=== PATIENT | female | born 1965 | race Caucasian/White ===

== ENCOUNTER 2019-11-11 15:00 | Outpatient (CLI) | payer OTHER, SELFPAY ==
--- NOTE | ~2019-11-11 | MM_ITS ---
EXAMINATION: MM screening [facility] BI w devin HISTORY: Screening mammogram TECHNIQUE: Craniocaudal and mediolateral oblique 3-D tomosynthesis images were obtained and synthetic 2-D images were generated. CAD analysis was submitted and interpreted. COMPARISON: 05/09/2018, 01/20/2017, 10/26/2015 BREAST PARENCHYMAL COMPOSITION: There are scattered areas of fibroglandular density. FINDINGS: Scattered benign-appearing calcifications are present. There is no evidence of suspicious m ass, calcification, or architectural distortion to suggest malignancy in either breast. There has bee n no suspicious interval change. IMPRESSION: 1. No mammographic evidence of malignancy. 2. Recommend routine screening mammography in one year. BI-RADS Category 2: Benign finding(s). Reviewed, dictated and finalized at location A.
== END 2019-11-11 15:01 | disposition home or self-care (01) ==
LOC: ANHIMG 15:03
PROVIDERS: PCP Physician Assistant; Visit Provider Obstetrics & Gynecology
DX: Z12.31 Encounter for screening mammogram for malignant neoplasm of breast (principal)
CPT/HCPCS: 77063; 77067

== ENCOUNTER 2020-11-16 08:55 | Outpatient (CLI) | payer OTHER, SELFPAY ==
--- NOTE | ~2020-11-16 | MM_ITS ---
EXAMINATION: MM screening [facility] BI w devin HISTORY: Screening TECHNIQUE: Craniocaudal and mediolateral oblique 3-D tomosynthesis images were obtained and synthetic 2-D images were generated. CAD analysis was submitted and interpreted. COMPARISON: Comparison to multiple prior studies sequentially, with oldest reviewed study dated 11/19. BREAST PARENCHYMAL COMPOSITION: There are scattered areas of fibroglandular density. FINDINGS: There is a mass in the mid outer aspect of the right breast with central lucency. The left breast is stable without evidence for malignancy. IMPRESSION: 1. Mass mid outer aspect of the right breast, middle third. 2. Additional mammographic views and possible breast ultrasound are recommended. BI-RADS Category 0: Incomplete: Needs additional imaging evaluation. Reviewed, dictated and finalized at location A. IMPRESSION: 1. Mass mid outer aspect of the right breast, middle third. 2. Additional mammographic views and possible breast ultrasound are recommended . BI-RADS Category 0: Incomplete: Needs additional imaging evaluation.
== END 2020-11-16 08:56 | disposition home or self-care (01) ==
LOC: ANHIMG 08:58
PROVIDERS: PCP Physician Assistant; Visit Provider Obstetrics & Gynecology
DX: Z12.31 Encounter for screening mammogram for malignant neoplasm of breast (principal); R92.8 Other abnormal and inconclusive findings on diagnostic imaging of breast
CPT/HCPCS: 77063; 77067

== ENCOUNTER → 2020-12-28 14:30 | Outpatient (CLI) | payer OTHER, SELFPAY ==
--- NOTE | ~2020-12-28 | MMUS_ITS ---
EXAMINATION: MM diagnostic [facility] RT w devin, US breast RT limited HISTORY: Follow-up right breast mass TECHNIQUE: Additional 3-D tomosynthesis images of the right breast were performed and synthetic 2-D i mages were generated. CAD analysis was submitted and interpreted. High resolution Limited right breas t ultrasound was performed. COMPARISON: Comparison to multiple prior studies sequentially, with oldest reviewed study dated 11/19. BREAST PARENCHYMAL COMPOSITION: Breast composed of scattered areas of fibroglandular density. FINDINGS: MAMMOGRAPHIC FINDINGS: There is a mass in the mid outer aspect of the right breast with central lucency, most likely benign intramammary lymph node. ULTRASOUND: Limited right breast ultrasound: At 8:00, 6 cm from the nipple, there is a benign 8 mm lymph node cor responding to the mammographic abnormality. IMPRESSION: 1. No evidence for malignancy in the right breast. Benign findings. 2. Routine yearly screening mammogram and regular clinical breast examination are recommended. BI-RADS Category 2: Benign finding(s). Reviewed, dictated and finalized at location A. IMPRESSION: 1. No evidence for malignancy in the right breast. Benign findings. 2. Routine yearly screening mammogram and regular clinical breast examination a re recommended. BI-RADS Category 2: Benign finding(s).
== END ==
PROVIDERS: PCP Physician Assistant; Visit Provider Obstetrics & Gynecology
DX: R92.8 Other abnormal and inconclusive findings on diagnostic imaging of breast (principal)
CPT/HCPCS: 76642; 77061; 77065; G0279

== ENCOUNTER 2021-03-11 12:47 | Outpatient (CLI) | payer OTHER, SELFPAY ==
--- NOTE | ~2021-03-11 | DEXA_ITS ---
Bone Density Report Name: Zari Finley Age: 55 Sex: Female Ethnicity: White Date of : 1965 Indication: postmenopausal; height loss; Referring Provider: Edilia, Keyla Study: Bone densitometry was performed. Exam Date: March 11, 2021 Accession number: [id number] Bone Density: Region BMD T-score Z-score Classification AP Spine (L1-L4) 0.825 -2.0 -1.0 Osteopenia Femoral Neck (Left) 0.718 -1.2 -0.2 Osteopenia Total Hip (Left) 0.918 -0.2 0.5 Normal Total Hip Bilateral Avg 0.906 -0.3 0.4 Normal Femoral Neck (Right) 0.732 -1.1 0.0 Osteopenia Total Hip (Right) 0.893 -0.4 0.3 Normal World Health Organization criteria for BMD impression classify patients as: Normal (T-score at or above -1.0), Osteopenia (T-score between -1.0 and -2.5), or Osteoporosis (T-score at or below -2.5). 10-year Fracture Risk(1): Major Osteoporotic Fracture 6.0% Hip Fracture 0.3% Reported Risk Factors: [place] (), Neck BMD=0.718, BMI=25.5 (1) FRAX(R) Version 3.08. Fracture probability calculated for an untreated patient. Fracture probability may be lower if the patient has received treatment. Clinical Information Provided by Patient: Patient maximum height was 69 Menopause Age: 53 Drinks caffeinated beverages Onset of menses at age 16 Number of children 2 Impression: The patient has low bone mass, based on the Total Spine T-score. The patient has an estimated ten-year risk of hip fracture of 0.3% and an estimated ten-year risk of major fracture of 6%, based on the WHO FRAX algorithm. Discussion: BONE DENSITY IS LOW AT ONE OR MORE SKELETAL SITES. This patient's lowest T-score is low at one or more skeletal sites. It meets the World Health Organization's (WHO) criteria for ?low bone mass? (T-score between -1.0 and -2.5). The patient's 10-year risk of fracture as calculated by FRAX is less than the threshold where pharmacological therapy is recommended by the National Osteoporosis Foundation (NOF). However, all treatment decisions require clinical judgment and consideration of individual patient factors, including patient preferences, comorbidities, previous drug use, risk factors not captured in the FRAX model (e.g., frailty, falls, vitamin D deficiency, increased bone turnover, interval significant decline in bone density) and possible under or overestimation of fracture risk by FRAX. The patient should follow a healthful lifestyle (good nutrition with adequate calcium and vitamin D, and appropriate weight-bearing exercise). Follow-Up: Consider repeating this study in 2 to 3 years to reassess this patient's status, or sooner if there is some new clinical indication. Reported by: VAMSI on 03/11/2021 1:20:00 PM. Reviewed, dictated and finalized at location A.
== END 2021-03-11 12:48 | disposition home or self-care (01) ==
PROVIDERS: PCP Physician Assistant; Visit Provider Physician Assistant
DX: Z78.0 Asymptomatic menopausal state (principal); M85.89 Other specified disorders of bone density and structure, multiple sites
CPT/HCPCS: 77080

== ENCOUNTER 2022-01-26 16:48 | Outpatient (CLI) | payer OTHER, SELFPAY ==
--- NOTE | ~2022-01-26 | MM_ITS ---
EXAMINATION: MM screening [facility] BI w devin HISTORY: Screening mammogram TECHNIQUE: Craniocaudal and mediolateral oblique 3-D tomosynthesis images were obtained and synthetic 2-D images were generated. CAD analysis was submitted and interpreted. COMPARISON: 12/28/2020 diagnostic right mammogram and limited right breast ultrasound 11/16/2020, 11/11/2019, 05/09/2018 bilateral screening mammogram examinations BREAST PARENCHYMAL COMPOSITION: There are scattered areas of fibroglandular density. FINDINGS: Stable circumscribed benign-appearing lymph node in the posterior outer mid right breast. S cattered bilateral benign calcifications. There is no evidence of suspicious mass, calcification, or architectural distortion to suggest malignancy in either breast. There has been no suspicious interva l change. IMPRESSION: 1. No mammographic evidence of malignancy. 2. Recommend routine screening mammography in one year. BI-RADS Category 2: Benign finding(s). Reviewed, dictated and finalized at location A.
== END 2022-01-26 16:49 | disposition home or self-care (01) ==
PROVIDERS: PCP Physician Assistant; Visit Provider Obstetrics & Gynecology
DX: Z12.31 Encounter for screening mammogram for malignant neoplasm of breast (principal)
CPT/HCPCS: 77063; 77067

== ENCOUNTER 2022-02-14 00:48 | Day surgery (SDC) | payer OTHER, SELFPAY ==
[2022-02-04 16:23] VITALS: BMI 25.1
--- NOTE | 2022-02-04 16:30 | PC.NURSE ---
Report to the Outpatient Waiting Room, entrance under the green pavilion located off [facility], at time ___08:00AM____ on date __[id number] . OR Time: ____10:00AM____. Time changes happen often and if your time is changed the preop area will call you the afternoon before. - You and your visitor will be asked to self-screen and do not enter if you have any COVID symptoms. - We encourage only one visitor and NO visitors under age 16 are allowed at this time. Your visitor will receive communication by the phone number that is given day of service. - The patient visitor is requested to social distance or may leave the building when not with patient due to restrictions. - A mask is required within the hospital. Patients may have clear liquids (water, carbonated beverages, clear teas, apple juice) until 3 hours prior to surgery with a maximum of 20 ounces. - No food from midnight until time of surgery - NOTHING TO DRINK AFTER 07:00AM Take the following medications with a SIP of water the morning of surgery: ____SYNTHROID Medications to discontinue per physician N/A Date to take last dose N/A Please no make-up, nail indian, hairspray, perfume, deodorant, or body powder the day of surgery. No jewelry (including any body piercings) or valuables the day of surgery, leave them at home. Please take a shower or bath the night before, or the morning of, surgery with an antibacterial soap. Wear comfortable, loose fitting clothing. - Jewelry must be removed prior to entering the operating room. Rings and piercings that are not removed may be cut off. - The hospital will not accept responsibility for valuables. - Please leave all valuables, including medications, at home the day of surgery. If you are going home after surgery, a licensed special events driver must drive you home. - NO public transportation without another adult. - We recommend that an adult stay with you for 24 hours following discharge. - We also recommend that you do not drive, make important decision, drink alcoholic beverages, or take any drugs that were not prescribed by your health care provider for at least 24 hours after your discharge time. Follow any additional instructions given to you from your surgeon. If you or anyone in your household have experienced Covid symptoms in the past week, please notify your surgeon or the nurse liaison at the phone number below for possible testing. Telephone instructions given to __PATIENT___and asked if any additional questions and then verbalized understanding. Patient advised to call surgeon office or pre surgery nurse liaison [phone] if any additional questions.
--- NOTE | 2022-02-13 19:16 | P.HP_ITS ---
H&P: HPI History of Present Illness Date/Time: 02/13/22 19:16 Chief Complaint: PMB Narrative: Zari is a 56yo postmenopausal P2002, who presented to clinic for WWE; pap normal 2019. She reported noticing discharge that looked like ovulation; then had spotting x 2 days (very light pink). She has not been sexually active. She had a [employer] US showing slightly thickened endometrium. Review of Systems Review of Systems: All systems reviewed & are unremarkable except as noted in HPI and below PMFSH Past Medical History Medical History High cholesterol HPV (human papilloma virus) infection Hypothyroid Mass of right breast on mammogram Meningioma Normal colonoscopy 1997 Screening mammogram, encounter for Vaginal delivery x 2 Surgical History Surgical History History of gynecological procedure (10/14/14) vulvar bx- lichen sclerosus History of tonsillectomy [place] teeth removed Family History Family History Father High cholesterol Acute myocardial infarction Grandparent Carcinoma of colon Social History Social History Smoking status: Never smoker Second hand tobacco smoke exposure: Yes () Alcohol intake: current Drinks per week: 1 Alcohol use details: OCCASIONAL Substance use: never Substance use type: does not use Additional living arrangements comments: Additional occupation/education comments: teacher Gender identity (if verbalized by the patient): Female Sexual Orientation (if Verbalized by the Patient): Straight or Heterosexual Spiritual care concerns: No Meds Home Medications and Allergies Home Medications Medication Instructions Recorded Confirmed Type levothyroxine 50 mcg tablet 50 mcg PO DAILY 10/22/19 02/04/22 History (Synthroid) clobetasol 0.05 % topical cream 1 applic topical .1-2x/week #60 11/17/21 02/04/22 Rx grams nystatin 100,000 unit/gram topical 1 applic topical BID PRN 11/17/21 02/04/22 Rx cream irritation #30 grams Allergies Allergy/AdvReac Type Severity Reaction Status Date / Time No Known Allergies Allergy Verified 02/04/22 16:21 Exam Const: General: cooperative, healthy appearing, comfortable and no acute distress Resp: Effort & Inspection: normal respiratory effort Cardio: Rate: regular rate GI: Inspection: normal to inspection GI Palp: No abdominal tenderness and Yes Soft to palpation : Other: deferred to OR Skin: General skin exam: normal color Neuro: General: patient oriented x3 Extrem: General: normal to inspection Psych: Appearance: grossly normal Affect: normal affect Attitude: cooperative Assessment and Plan Assessment and plan (1) Postmenopausal bleeding: Code(s): N95.0 - Postmenopausal bleeding Status: Acute Plan - Proceed with hysteroscopy, D&C - Risks and benefits explained in detail
--- NOTE | 2022-02-14 07:00 | WPDHPUPDATE1 ---
History and Physical Update Update Date/Time: 02/14/22 07:00 History and Physical has been reviewed, including an updated exam of the patient. There are NO changes in the patient's condition. Risks, benefits, and alternatives have been discussed and questions answered. Patient agrees to proceed with procedure.
[2022-02-14 08:09] VITALS: BP 113/50; PULSE 62; RESP 16; TEMP 36.5; O2SAT 99
[2022-02-14] MEDS: ACETAMINOPHEN 500 MG TABLET 1000 MG PO (08:23)
--- NOTE | 2022-02-14 09:00 | WPDANESEPPF ---
Anes - Initial Pre Proc Eval Procedure: Operation Date: 02/14/22 10:00 Proposed Procedures p Hysteroscopy, Dilation and Curettage - Doreen Islas MD Date/Time: 02/14/22 09:00 Surgeon: Doreen Islas MD Pre Op Diagnosis: endometrial hypertrophy Patient Data Age: 56 Gender: F Height: 1.73 m Weight: 77.8 kg Last Vital Signs Temp 36.5 C 02/14/22 08:09 Pulse 62 02/14/22 08:09 Resp 16 02/14/22 08:09 BP 113/50 L 02/14/22 08:09 Pulse Ox 99 02/14/22 08:09 O2 Del Method Room Air 02/14/22 08:09 Allergies Allergy/AdvReac Type Severity Reaction Status Date / Time No Known Allergies Allergy Verified 02/14/22 08:06 Home Medications Medication Instructions Recorded Confirmed Type levothyroxine 50 mcg tablet 50 mcg PO DAILY 10/22/19 02/14/22 History (Synthroid) clobetasol 0.05 % topical cream 1 applic topical .1-2x/week #60 11/17/21 02/14/22 Rx grams nystatin 100,000 unit/gram topical 1 applic topical BID PRN 11/17/21 02/14/22 Rx cream irritation #30 grams Patient hx anesthesia problems: none Family hx anesthesia problems: none Results Review: All pre-operative results and documents have been reviewed as part of the pre-operative evaluation. [facility] Past Medical History Medical History High cholesterol HPV (human papilloma virus) infection Hypothyroid Mass of right breast on mammogram Meningioma Normal colonoscopy 1997 Screening mammogram, encounter for Vaginal delivery x 2 Surgical History Surgical History History of gynecological procedure (10/14/14) vulvar bx- lichen sclerosus History of tonsillectomy [place] teeth removed Family History Family History Father High cholesterol Acute myocardial infarction Grandparent Carcinoma of colon Social History Social History Smoking status: Never smoker Second hand tobacco smoke exposure: Yes () Alcohol intake: current Drinks per week: 1 Alcohol use details: OCCASIONAL Substance use: never Substance use type: does not use Additional living arrangements comments: Additional occupation/education comments: teacher Gender identity (if verbalized by the patient): Female Sexual Orientation (if Verbalized by the Patient): Straight or Heterosexual Spiritual care concerns: No Anes - Eval Final PreProcedure Day of Procedure 02/14/22 09:00 Patient weight: normal Heart: regular rate and rhythm Lungs: clear to auscultation Airway: Mallampati scale class II Neurological: alert and oriented Last oral intake: >/= 8 hours ASA classification: II Emergent: no Anesthetic plan: proceed Anesthesia type and monitoring: general GIVS and standard monitoring Results Review: All pre-operative results and documents have been reviewed as part of the pre-operative evaluation. Informed Consent: The patient's anesthetic plan and its attendant risks and benefits were discussed with the patient/family/POA. Questions were solicited and answers provided to the satisfaction of the patient/family/POA.
--- NOTE | 2022-02-14 10:38 | W.PM.PROC2 ---
Procedure Note - Detailed Date of Procedure 02/14/22 Pre-op Diagnosis Postmenopausal bleeding Post-op Diagnosis Same Procedure Performed Hysteroscopy with D&C Surgeon Doreen Islas MD Anesthesia MAC Findings Uterus sounded to 8cm, bilateral tubal ostia were visualized, normal appearing endometrium. Good hemostasis at end of case. No fluid deficit at the end of the case. Description of Procedure Zari was taken to the operating room where she was placed under sedation without complications. She was then prepped and draped in the usual sterile fashion in the dorsal lithotomy position with her legs in low Sreedhar stirrups. A time-out was performed and no perioperative antibiotics were indicated. A bivalve speculum was placed within the vagina where the cervix was easily identified. The anterior lip of the cervix was grasped with a single-tooth tenaculum. The cervix was then serially dilated to allow for the hysteroscope. The hysteroscope was advanced into the uterine cavity with the above findings noted. A curettage was then performed until a good uterine cry was felt throughout the uterus. Good hemostasis was noted. All instruments were removed from the vagina. Sponge, lap, instrument, and needle counts were correct at the end of the procedure. Patient was awoken from anesthesia and taken to recovery with plans of same-day discharge home. Estimated Blood Loss 3 IV Fluids 900 Pathology Yes (endometrial curettings) Complications No immediate complications Condition Stable Disposition Same day [facility] Billing Surgery - Charge Forward: Surgery Billing
[2022-02-14 10:42] VITALS: BP 108/60; PULSE 46; RESP 12; O2SAT 98
[2022-02-14] MEDS: LACTATED RINGERS 1,000 ML 30 ML IV CONT (10:42)
[2022-02-14 11:10] VITALS: BP 97/51; PULSE 42; RESP 12; O2SAT 98
[2022-02-14 11:40] VITALS: BP 92/55; PULSE 42; RESP 12
== END 2022-02-14 11:56 | disposition home or self-care (01) ==
PROVIDERS: PCP Physician Assistant; Visit Provider Obstetrics & Gynecology
PROC: 0U5B8ZZ Destruction of Endometrium, Via Natural or Artificial Opening Endoscopic (ICD-10-PCS; CPT 58563; principal; 2022-02-14 10:00)
DX: N95.0 Postmenopausal bleeding (principal); N85.8 Other specified noninflammatory disorders of uterus; E03.9 Hypothyroidism, unspecified; E78.00 Pure hypercholesterolemia, unspecified
CPT/HCPCS: 58558; 88305; A9270; J2250; J2704; J3010; J7030; J7120

== ENCOUNTER 2022-11-04 12:05 | Outpatient (CLI) | payer OTHER, SELFPAY ==
--- NOTE | ~2022-11-04 | XR_ITS ---
EXAM: XR lumbar spine 2-3V DATE: 11/04/2022 12:45 HISTORY: PAIN RT LOWER LIMB;PAIN OF RIGHT KNEE JOINT WORSEN 4 DAYS . COMPARISON: None available. FINDINGS: Mild scoliosis. Decreased mineralization. 5 nonrib-bearing lumbar-type vertebral bodies. Pe dicles intact. Normal vertebral body alignment. Vertebral body heights preserved. Multilevel disc spa ce narrowing, mild at L3-4, moderate at L4-5, and severe at L5-S1. Moderate facet hypertrophy and scl erosis at L3-4 and L4-5. Severe facet hypertrophy and sclerosis at L5-S1. No fracture or dislocation. IMPRESSION: Multilevel lumbar degenerative disc disease, severe at L5-S1. Multilevel facet arthropath y. Reviewed, dictated and finalized at location K. IMPRESSION: Multilevel lumbar degenerative disc disease, severe at L5-S1. Multi level facet arthropathy.
--- NOTE | ~2022-11-04 | US_ITS ---
EXAMINATION: US venous doppler LE RT DATE: 11/04/2022 13:03 INDICATION: Right lower limb pain TECHNIQUE: Grayscale ultrasound images without and with compression and Doppler ultrasound images of the right lower extremity veins were obtained. COMPARISON: None. FINDINGS: The visualized portions of right common femoral vein, profunda (deep) femoral vein, femoral vein, pop liteal vein, peroneal trunk, posterior tibial veins, peroneal veins, gastrocnemius vein and greater s aphenous vein outflow are patent. IMPRESSION: 1. No deep venous thrombosis in the right lower limb. Reviewed, dictated and finalized at location B.
== END 2022-11-04 12:06 | disposition home or self-care (01) ==
PROVIDERS: PCP Physician Assistant; Visit Provider Physician Assistant
DX: M79.604 Pain in right leg (principal); M25.561 Pain in right knee; M51.36 Other intervertebral disc degeneration, lumbar region; M51.37 Other intervertebral disc degeneration, lumbosacral region
CPT/HCPCS: 72100; 73564; 93971

== ENCOUNTER 2023-04-05 16:24 | Outpatient (CLI) | payer OTHER, SELFPAY ==
--- NOTE | ~2023-04-05 | MM_ITS ---
EXAMINATION: MM screening [facility] BI w devin HISTORY: Screening mammogram TECHNIQUE: Craniocaudal and mediolateral oblique 3-D tomosynthesis images were obtained and synthetic 2-D images were generated. CAD analysis was submitted and interpreted. COMPARISON: 01/26/2022, 12/28/2020, 11/16/2020, 11/11/2019 BREAST PARENCHYMAL COMPOSITION: There are scattered areas of fibroglandular density. FINDINGS: Scattered benign-appearing calcifications are present. A stable intramammary lymph node is noted in the right breast. No suspicious mass, calcification, or architectural distortion are identif ied in either breast to suggest malignancy. There has been no suspicious interval change. IMPRESSION: 1. No mammographic evidence of malignancy. 2. Recommend routine screening mammography in one year. BI-RADS Category 2: Benign finding(s). Reviewed, dictated and finalized at location A. RMATICA ARCHITECT
== END 2023-04-05 16:25 | disposition home or self-care (01) ==
LOC: ANHIMG 16:30
PROVIDERS: PCP Physician Assistant; Visit Provider Obstetrics & Gynecology
DX: Z12.31 Encounter for screening mammogram for malignant neoplasm of breast (principal)
CPT/HCPCS: 77063; 77067

== ENCOUNTER 2024-04-08 15:33 | Outpatient (CLI) | payer OTHER, SELFPAY ==
--- NOTE | ~2024-04-08 | MM_ITS ---
EXAMINATION: MM screening [facility] BI w devin HISTORY: Screening TECHNIQUE: Craniocaudal and mediolateral oblique 3-D tomosynthesis images were obtained and synthetic 2-D images were generated. CAD analysis was submitted and interpreted. COMPARISON: Comparison to multiple prior studies sequentially, with oldest reviewed study dated 12/2018. BREAST PARENCHYMAL COMPOSITION: Not dense: There are scattered areas of fibroglandular density.. FINDINGS: There is no evidence of suspicious mass, calcification, or architectural distortion to sugg est malignancy in either breast. There has been no suspicious interval change. IMPRESSION: 1. No mammographic evidence of malignancy. 2. Recommend routine screening mammography in one year. BI-RADS Category 1: Negative Reviewed, dictated and finalized at location B. NG COACH
== END 2024-04-08 15:34 | disposition home or self-care (01) ==
LOC: ANHIMG 15:34
PROVIDERS: PCP Physician Assistant; Visit Provider Obstetrics & Gynecology
DX: Z12.31 Encounter for screening mammogram for malignant neoplasm of breast (principal)
CPT/HCPCS: 77063; 77067

== ENCOUNTER 2024-04-12 00:39 | Day surgery (SDC) | payer OTHER, SELFPAY ==
[2024-04-02 15:38] VITALS: BMI 25.1
[2024-04-12 07:28] VITALS: BP 108/62; PULSE 69; RESP 16; TEMP 35.6; O2SAT 100; BMI 25.8
--- NOTE | 2024-04-12 07:42 | P.PNAN_ITS ---
Anes - Initial Pre Proc Eval Procedure: Operation Date: 04/12/24 08:30 Proposed Procedures p Colonoscopy - Festus Portillo MD Date/Time: 04/12/24 07:42 Surgeon: Festus Portillo MD Pre Op Diagnosis: fecal abnormalities Patient Data Age: 58 Gender: F Height: 1.73 m Weight: 77.1 kg Last Vital Signs Temp 35.6 C L 04/12/24 07:28 Pulse 69 04/12/24 07:28 Resp 16 04/12/24 07:28 BP 108/62 04/12/24 07:28 Pulse Ox 100 04/12/24 07:28 O2 Del Method Room Air 04/12/24 07:28 Allergies Allergy/AdvReac Type Severity Reaction Status Date / Time No Known Allergies Allergy Verified 04/12/24 07:34 Home Medications ?Medication ?Instructions ?Recorded ?Confirmed ?Type levothyroxine 75 mcg tablet 75 mcg PO DAILY 11/29/23 04/12/24 History (Synthroid) nystatin 100,000 unit/gram topical 1 applic topical BID PRN 11/29/23 04/12/24 Rx cream irritation #30 grams clobetasol 0.05 % topical cream 1 applic topical BID PRN Rash 04/02/24 04/12/24 History docusate sodium 100 mg capsule 100 mg PO DAILY PRN Constipation 04/02/24 04/12/24 History Patient hx anesthesia problems: none Family hx anesthesia problems: none Results Review: All pre-operative results and documents have been reviewed as part of the pre- operative evaluation. [facility] Past Medical History Medical History Screening mammogram, encounter for Mass of right breast on mammogram Normal colonoscopy 1997 HPV (human papilloma virus) infection Vaginal delivery x 2 Meningioma Hypothyroid High cholesterol Surgical History Surgical History History of tonsillectomy History of gynecological procedure (10/14/14) vulvar bx- lichen sclerosus [place] teeth removed Family History Family History Father High cholesterol Acute myocardial infarction Lung cancer Grandparent Carcinoma of colon Other Breast cancer Social History Social History Smoking status: Never smoker Second hand tobacco smoke exposure: Yes () Alcohol intake: current Drinks per week: 1 Alcohol use details: OCCASIONAL Substance use: never Substance use type: does not use Lack of Transportation: No Lack of Food: Never True Current Housing: I Have Housing Concerned About Future Housing: No Difficulty Paying Gas/Electric Bills: No Difficulty Paying for Meds: No Currently Unemployed: No Education: Bachelor's Degree Difficulty w/ Childcare or Family Care: No Living arrangements: with family Additional living arrangements comments: Occupation/Education: occupation Additional occupation/education comments: teacher Gender identity (if verbalized by the patient): Female Sexual Orientation (if Verbalized by the Patient): Straight or Heterosexual Spiritual care concerns: No Anes - Eval Final PreProcedure Day of Procedure 04/12/24 07:42 Patient weight: normal Heart: regular rate and rhythm Lungs: clear to auscultation Airway: Mallampati scale class II Neurological: alert and oriented Last oral intake: >/= 8 hours ASA classification: II Emergent: no Anesthetic plan: proceed Anesthesia type and monitoring: general GIVS and standard monitoring Results Review: All pre-operative results and documents have been reviewed as part of the pre- operative evaluation. Informed Consent: The patient's anesthetic plan and its attendant risks and benefits were discussed with the patient/family/POA. Questions were solicited and answers provided to the satisfaction of the patient/family/POA.
[2024-04-12] MEDS: LACTATED RINGERS 1,000 ML 150 ML IV CONT (07:47)
--- NOTE | 2024-04-12 08:05 | PM.IMHP ---
H&P: HPI History of Present Illness Date/Time: 04/12/24 08:05 Chief Complaint: History of colon polyps Narrative: The patient has a history of colonic polyps, the last colonoscopy was 4 years ago. She had minimal rectal bleeding moist on the toilet paper a few days ago. No change in bowel habits, abdominal pain or unintentional weight loss. There is no family history of colorectal cancer. Review of Systems Review of Systems: All systems reviewed & are unremarkable except as noted in HPI and below PMFSH Past Medical History Medical History Screening mammogram, encounter for Mass of right breast on mammogram Normal colonoscopy 1997 HPV (human papilloma virus) infection Vaginal delivery x 2 Meningioma Hypothyroid High cholesterol Surgical History Surgical History History of tonsillectomy History of gynecological procedure (10/14/14) vulvar bx- lichen sclerosus [place] teeth removed Family History Family History Father High cholesterol Acute myocardial infarction Lung cancer Grandparent Carcinoma of colon Other Breast cancer Social History Social History Smoking status: Never smoker Second hand tobacco smoke exposure: Yes () Alcohol intake: current Drinks per week: 1 Alcohol use details: OCCASIONAL Substance use: never Substance use type: does not use Lack of Transportation: No Lack of Food: Never True Current Housing: I Have Housing Concerned About Future Housing: No Difficulty Paying Gas/Electric Bills: No Difficulty Paying for Meds: No Currently Unemployed: No Education: Bachelor's Degree Difficulty w/ Childcare or Family Care: No Living arrangements: with family Additional living arrangements comments: Occupation/Education: occupation Additional occupation/education comments: teacher Gender identity (if verbalized by the patient): Female Sexual Orientation (if Verbalized by the Patient): Straight or Heterosexual Spiritual care concerns: No Meds Home Medications and Allergies Home Medications ?Medication ?Instructions ?Recorded ?Confirmed ?Type levothyroxine 75 mcg tablet 75 mcg PO DAILY 11/29/23 04/12/24 History (Synthroid) nystatin 100,000 unit/gram topical 1 applic topical BID PRN 11/29/23 04/12/24 Rx cream irritation #30 grams clobetasol 0.05 % topical cream 1 applic topical BID PRN Rash 04/02/24 04/12/24 History docusate sodium 100 mg capsule 100 mg PO DAILY PRN Constipation 04/02/24 04/12/24 History Allergies Allergy/AdvReac Type Severity Reaction Status Date / Time No Known Allergies Allergy Verified 04/12/24 07:34 Vital Signs Vital Signs - 24 hr 04/12/24 07:28 Temperature 96.0 F L Pulse Rate 69 Respiratory Rate 16 Blood Pressure 108/62 Pulse Oximetry 100 Oxygen Delivery Room Air Exam Const: General: cooperative and healthy appearing Resp: Effort & Inspection: normal respiratory effort and able to speak in complete sentences Auscultation: clear to auscultation bilaterally Cardio: Rate: regular rate Rhythm: regular rhythm GI: Inspection: normal to inspection GI Palp: No No hepatosplenomegaly present Auscultation: normal bowel sounds Rectal Exam: deferred Skin: General skin exam: normal color Psych: Appearance: grossly normal Mental Status: mental status grossly normal Assessment and Plan Assessment and plan (1) History of colonic polyps: Code(s): Z86.0100 - Personal history of colon polyps, unspecified Status: Acute Assessment and Plan: The patient is deemed a good candidate for the procedure. Consent signed. Will proceed.
[2024-04-12 08:51] VITALS: BP 90/51; PULSE 52; RESP 19; O2SAT 100
[2024-04-12 09:01] VITALS: BP 89/46; PULSE 48; RESP 14; O2SAT 100
[2024-04-12 09:11] VITALS: BP 104/77; PULSE 47; RESP 18; O2SAT 100
== END 2024-04-12 09:23 | disposition home or self-care (01) ==
PROVIDERS: PCP Physician Assistant; Visit Provider Internal Medicine Gastroenterology
PROC: 0DJD8ZZ Inspection of Lower Intestinal Tract, Via Natural or Artificial Opening Endoscopic (ICD-10-PCS; CPT 45378; principal; 2024-04-12 08:30)
DX: R19.5 Other fecal abnormalities (principal); E03.9 Hypothyroidism, unspecified; E78.00 Pure hypercholesterolemia, unspecified; Z98.890 Other specified postprocedural states; Z86.0100 Personal history of colon polyps, unspecified; Z80.1 Family history of malignant neoplasm of trachea, bronchus and lung; Z80.3 Family history of malignant neoplasm of breast; Z80.0 Family history of malignant neoplasm of digestive organs; Z82.49 Family history of ischemic heart disease and other diseases of the circulatory system
CPT/HCPCS: 45378; J2003; J2704; J7120

== ENCOUNTER 2025-04-10 15:28 | Outpatient (CLI) | payer OTHER, SELFPAY ==
--- NOTE | ~2025-04-10 | MM_ITS ---
EXAMINATION: MM screening tyree BI w devin HISTORY: Screening. TECHNIQUE: Craniocaudal and mediolateral oblique 3-D tomosynthesis images were obtained and synthetic 2-D images were generated. CAD analysis was submitted and interpreted. COMPARISON: 2023, 2022, and 2021. BREAST PARENCHYMAL COMPOSITION: Dense: The breasts are heterogeneously dense FINDINGS: No suspicious masses are seen. There are no suspicious calcifications. No unexplained architectural distortion is seen. There are no skin or nipple abnormalities identified. There is no adenopathy seen on the images submitted. IMPRESSION: No mammographic evidence to suggest malignancy is seen. The patient may return to screening mammography as per ACR guidelines. BI-RADS 1 - Negative. Reviewed, dictated and finalized at location [facility]. [facility]
--- OUTSIDE RECORDS SUMMARY | 2025-04-10 18:28 | XMS_ITS | Continuity of Care Document ---
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 Plan of Treatment Reminders Order Date Submit Date Provider Last Modified By Organization Details Last Modified Time Details Appointments None recorded. Lab TSH + free T4, serum 2024 026 [email or web address] [facility], [address], [place], [address], 12:46:42 lipid panel, serum 2024 026 [email or web address] [facility], [address], [place], [address], 5 12:46:42 CMP, serum or plasma 2024 026 [email or web address] [facility], [address], [place], [address], 12:46:42 cobalamin and folate panel, serum 2024 026 [email or web address] [facility], [address], [place], [address], 12:46:42 barley ige, serum 2024 025 [email or web address] [facility], [address], [place], [address], 19:07:54 wheat ige, serum 2024 [facility], [address], [place], [address], 19:07:23 rye ige, serum 2024 [facility], [address], [place], [address], 19:07:54 rye IgG Ab, quantitativ e, serum 2024 [facility], [address], [place], [address], 19:07:55 corn ige, serum 2024 [facility], [address], [place], [address], 19:07:53 corn igg, serum 2024 [facility], [address], [place], [address], 19:07:55 potato ige, serum 2024 [facility], [address], [place], [address], 19:07:53 Referral None recorded. Procedures None recorded. Surgeries None recorded. Imaging None recorded. Medication Orders metronidazo le 0.75 % topical cream 2024 [place] [id number], [address], [place], [id number], 12:33:53 Zetia 10 mg tablet 2024 025 EDMUND [id number], [address], [place], [id number], 12:47:01 Patient TargetsNo targets recorded. Patient InstructionsNo instructions recorded. Reason for Referral None Reported. Results Created Date Observation Date Name Description Value Unit Range Abnormal Flag Note LastModifiedBy Organization Detail LastModifiedTime 03/19/2003/26/2025 F008- IGE CORN M097-WtO corn 0.16 kU/L class0 /I abnormal Not Available [facility] ([facility]) [address] [place], [address], 03/26/2025 19:07:52 03/19/2003/26/2025 F035- IGE POTAT O, WHITE E579-EtG potato, white <0.10 kU/L class0 Not Available [facility] ([facility]) [address] [place], [address], 03/26/2025 19:07:53 03/19/2003/26/2025 F006- IGE BARLE Y E813-AbY barley 0.15 kU/L class0 /I abnormal Not Available [facility] ([facility]) [address] [place], [address], 03/26/2025 19:07:54 03/19/2003/26/2025 F005- IGE RYE B366-ZrZ rye <0.10 kU/L class0 Not Available [facility] ([facility]) [address] [place], [address], 03/26/2025 19:07:54 03/19/2003/24/2025 F005- IGG RYE C705-CkM rye 4.3 ug/mL 0.0-1. 9 above high normal Not Available [facility] ([facility]) [address] [place], [address], 03/26/2025 19:07:55 03/19/20 25 03/24/2025 F008- IGG CORN I679-RhF corn 3.3 ug/mL 0.0-1. 9 above high normal Not Available [facility] ([facility]) [address] [place], [address], 03/26/2025 19:07:55 03/19/20 25 03/19/2025 WHEAT IGE W/COM PONEN T REFLE X class description COMMEN T Level s of Speci fic IgE Class Descr iptio n of Class ----- ----- ----- ----- ----- -- ----- ----- ----- ----- ----- < 0.10 0 Negat tegan 0.10 - 0.31 0/I Equiv ocal/ Low 0.32 - 0.55 I Low 0.56 - 1.40 II Moder ate 1.41 - 3.90 III High 3.91 - 19.00 IV Very High 19.01 - 100.0 0 V Very High >100. 00 Very High Not Available [facility] ([facility]) [address] [place], [address], 03/27/2025 19:07:23 03/19/20 25 03/26/2025 WHEAT IGE W/COM PONEN T REFLE X W229-XvA wheat <0.10 Not Available [facility] ([facility]) [address] [place], [address], 03/27/2025 19:07:23 03/19/20 25 03/26/2025 WHEAT IGE W/COM PONEN T REFLE X A743-CwF tri A 19(W-5 gliadin) <0.10 Not Available [facility] ([facility]) [address] [place], [address], 03/27/2025 19:07:23 03/19/20 25 03/27/2025 WHEAT IGE W/COM PONEN T REFLE X Y606-CnH gliadin, wheat <0.10 Not Available [facility] ([facility]) [address], [place], [address], 03/27/2025 19:07:23 03/19/20 25 03/27/2025 WHEAT IGE W/COM PONEN T REFLE X reflex information NOT INDICA GUI Not Available [facility] ([facility]) [address], [place], [address], 03/27/2025 19:07:23 Result Notes None recorded. Problems Name Problem SNOMED Code Status Onset Date Resolution Date Notes Provider Name and Address Organization Details Recorded Time Body mass index 25-29 - overweight 936600264 Active 2023 LOURDES Encarnacion Attn: Accountin g,[address] [facility], [place], [address], [facility] - [facility] 4 10:04:11 Hypothyroidism 65203670 Active 2023 LOUDRES Encarnacion Attn: Accountin g,[address] [place], [address], [place] [facility] 4 10:04:12 Long-term drug therapy Active 2023 LOURDES Encarnacion Attn: Accountin g,[address] [facility], [place], [address], [place] [facility] 4 10:04:12 Intracranial meningioma 304796863 Active 2023 LOURDES Encarnacion Attn: Accountin g,[address] [facility], [place], [address], [place] [facility] 4 10:23:07 Family history of coronary arterioscleros is 369469690 Active 2023 LOURDES Encarnacion Attn: Accountin g,[address] [facility], [place], [address], [place] [facility] 4 10:28:14 Overweight 974611071 Active 2024 LOURDES Encarnacion Attn: Jackie carreno,[address] [place], [address], [facility] - [facility] 5 10:21:17 Perioral dermatitis 967334591 Active 2024 LOURDES Encarnacion Attn: Jackie carreno,[address] [place], [address], [facility] - [facility] 5 01:10:01 Overweight in adulthood with body mass index of 25 or more but less than 30 270180280 Active 2024 LOURDES Encarnacion Attn: Jackie carreno,[address] [place], [place], [address] [place] [address] 2, [facility] 5 01:10:09 Face goes red 759864368 Active 2024 LOURDES Encarnacion Attn: Jackie carreno,[address] [place], [place], [address] [place] [address] 2, [facility] - [facility] 5 01:10:36 Hyperlipidemia 92931443 Active 2024 LOURDES Encarnacion Attn: Jackie carreno,[address] [place], [address], [facility] 5 01:11:00 Cobalamin deficiency 492830370 Active 2024 LOURDES Encarnacion Attn: Jackie carreno,[address] [place], [address], [facility] - [facility] 5 01:11:10 Long-term current use of drug therapy 509048041 Active 2024 LOURDES Encarnacion Attn: Jackie carreno,[address] [place], [address], [facility] 5 01:11:32 Problem Notes None recorded. Procedures Surgical History Date Name Laterality Status Provider Name and Address Organization Details Recorded Time Tonsillectomy completed Carroll Bucio MA [place] [facility] 11/20/2023 10:39:19 Imaging Results None recorded. Procedure Notes None recorded. Medical Equipment None Reported. Allergies No known drug allergies Medications Name Sig Start Date Stop Date Status Note LastModified by Organization Details LastModified Time clobetaso l 0.05 % topical cream APPLY TOPICALL Y TO THE AFFECTED AREA TWICE DAILY NEEDED FOR RASH active Not Available Not Available No t Available cyanocoba shannan (vit B-12) 1,000 mcg tablet Take 1 tablet by oral route for 30 days. active pt quit states that she has noticed skin rash as well after taking and pt has stopped Not Available Not Available Not Available nystatin 100,000 unit/gram topical cream APPLY TOPICALL Y UNDER THE BREATS TWICE DAILY NEEDED FOR IRRITATI ON active Not Available Not Available No t Available metronida zole 0.75 % topical cream APPLY A THIN LAYER TO THE AFFECTED AREA(S) perioral BY TOPICAL ROUTE 2 TIMES PER DAY IN THE MORNING AND EVENING PRN active Not Available Not Available No t Available Synthroid 75 mcg tablet TAKE 1 TABLET BY MOUTH EVERY DAY active Not Available Not Available No t Available Synthroid 50 mcg tablet TAKE 1 TABLET BY MOUTH DAILY IN THE MORNING 11/19 completed Not Available Not Available Not Available docusate sodium 100 mg capsule TAKE ONE CAPSULE BY MOUTH DAILY 10/03 completed Not Available Not Available Not Available mupirocin 2 % topical ointment APPLY SMALL AMOUNT TOPICALL Y TO THE AFFECTED AREA THREE TIMES DAILY FOR 5 DAYS 10/03 completed Not Available Not Available Not Available ezetimibe 10 mg tablet TAKE 1 TABLET BY MOUTH EVERY DAY active Not Available Not Available No t Available BinaxNOW COVID-19 Ag Self Test kit USE DIRECTED 11/19 completed Not Available Not Available Not Available Vitals Date Recorded Systolic And Diastolic Provider Name and Address Organization Details Last Updated DateTime 03/19/2025 110/80 mm[Hg] LOURDES Encarnacion Attn: Accounting,[address] [facility], [place], [address], [place] [facility] 03/19/2025 12:41:05 Date Recorded Body height Body mass index (BMI) Body weight Respiratory rate Oxygen saturation Heart rate Systolic And Diastolic Provider Name and Address Organization Details Last Updated DateTime 172.72 cm 25.6 kg/m2 58352.6 7 g 18 /min 96 % 62 /min 124/82 mm[Hg] Carroll Bucio MA [place] [facility] 12:28:05 Social History Question Answer Notes LastModified by Organizat ion Details LastModified Time Tobacco Smoking Status Never Smoker Carroll Bucio MA null, [place] [facility] 11/20/2023 09:57:09 Do You Have An Advance Directive? Yes Information not available 11/20/2023 Are You Blind Or Do You Have Difficulty Seeing? No Readers Information not available 11/20/2023 What Is Your Level Of Caffeine Consumption? Moderate Information not available 11/20/2023 In The 14 Days Before Symptom Onset, Have You Had Close Contact With A Laboratory-confir med COVID-19 While That Case Was Ill? No Information not available 11/20/2023 In The 14 Days Before Symptom Onset, Have You Had Close Contact With A Person Who Is Under Investigation For COVID-19 While That Person Was Ill? No Information not available 11/20/2023 Have You Been To An Area Known To Be High Risk For COVID-19? No Information not available 11/20/2023 Are You Deaf Or Do You Have Serious Difficulty Hearing? No Information not available 11/20/2023 Are There Any Guns Present In Your Home? No Information not available 11/20/2023 What Was The Date Of Your Most Recent Tobacco Screening? 03/19/2025 Information not available 03/19/2025 Do You Use Your Seat Belt Or Car Seat Routinely? Yes Information not available 11/20/2023 Do You Have Smoke And Carbon Monoxide Detectors In Your Home? Yes Information not available 11/20/2023 Do You Use Sunscreen Routinely? No Information not available 11/20/2023 Has Tobacco Cessation Counseling Been Provided? Yes Information not available 11/20/2023 On What Date Was Tobacco Cessation Counseling Provided? 03/19/2025 Information not available 03/19/2025 Sex: Female Functional Status Question Answer Note LastModified by Organizat ion Details LastModified Time Do you use any illicit or recreational drugs? No Information not available 11/20/2023 Do you or have you ever used any other forms of tobacco or nicotine? No Information not available 11/20/2023 What is your level of alcohol consumption? Occasional Information not available 11/20/2023 Are you able to care for yourself independently? Yes Information not available 11/20/2023 What is your exercise level? Moderate walk 2 mile 4-5x a week Information not available 11/20/2023 Mental Status None recorded. Family History Relationship Description Onset Age of this Age Resolved Age Notes LastModified by Organization Details LastModified Time Mother Hypercholest erolemia [email or web address] Not available 2023 09:56:41 Mother Hypertensive disorder [email or web address] Not available 2023 09:56:48 Father Hypercholest erolemia tcarterma Not available 2023 09:56:41 Father Myocardial infarction 60 [email or web address] Not available 11/19 10:27:04 Father Malignant neoplasm of colon [email or web address] Not available 2023 10:42:45 Father Malignant neoplasm of prostate [email or web address] Not available 2023 10:42:51 Medical History Condition Response High Cholesterol Y Thyroid Problems Y Gynecological History Statement/Question Response Menses Monthly N Obstetrics History GPAL:G 2 P 2 0 0 2 Type Value Full Term 2 Induced 0 Spontaneous 0 Premature 0 Living 2 Total 2 Immunizations Vaccine Type Date Status Note Provider Nam e and Address Organization Details Recorded Time zoster recombinant 3 completed Carroll Bucio [place] null, [place] [facility] 11/20/2023 09:59:24 Influenza, split virus, trivalent, preservative 2 completed Not Available [facility] 03/19/2025 12:09:47 Influenza, split virus, trivalent, preservative 3 completed Not Available [facility] 03/19/2025 12:09:47 Influenza, split virus, trivalent, PF 7 completed Not Available [facility] 03/19/2025 12:09:47 Influenza, split virus, quadrivalent, preservative 9 completed Not Available [facility] 03/19/2025 12:09:47 Influenza, split virus, quadrivalent, PF 0 completed Not Available [facility] 03/19/2025 12:09:47 COVID-19, mRNA, LNP-S, PF, 30 mcg/0.3 mL dose 1 completed Not Available [facility] 03/19/2025 12:09:47 COVID-19, mRNA, LNP-S, PF, 30 mcg/0.3 mL dose 1 completed Not Available [facility] 03/19/2025 12:09:47 COVID-19, mRNA, LNP-S, PF, 30 mcg/0.3 mL dose 1 completed Not Available [facility] 03/19/2025 12:09:47 Influenza, MDCK, quadrivalent, PF 1 completed Not Available [facility] 03/19/2025 12:09:47 COVID-19, mRNA, LNP-S, PF, 30 mcg/0.3 mL dose 1 completed Not Available [facility] 03/19/2025 12:09:47 COVID-19, mRNA, LNP-S, bivalent, PF, 50 mcg/0.5 mL or 25mcg/0.25 mL dose 2 completed Not Available [facility] 03/19/2025 12:09:47 Influenza, MDCK, quadrivalent, PF 2 completed Not Available [facility] 03/19/2025 12:09:47 zoster recombinant 3 completed Not Available [facility] 03/19/2025 12:09:47 zoster recombinant 3 completed Not Available [facility] 03/19/2025 12:09:47 Influenza, split virus, trivalent, PF 4 completed Not Available [facility] 03/19/2025 12:09:47 Past Encounters Encounter ID Performer Location Encounter Start Date Encounter Closed Date Diagnosis/Indication Diagnosis SNOMED-CT Code Diagnosis ICD10 Code Diagnosis IMO Codes Diagnosis Note [id number] Luis Felipe Helton MD [facility] - Sarwat Garrido [address] [place] [address] 03/19/2025 12:06:26 03/19/2025 12:51:10 Overweight in adulthood with body mass index of 25 or more but less than 30 179863843 E66.3 Z68.25 7302556932 BMI is 25.9 Perioral dermatitis 2387 25402 L71.0 823 Start metronidaz ole 0.75% topical cream to apply twice daily on an as-needed basis for perioral dermatitis . If this does not resolve symptoms we discussed taking doxycyclin e course Face goes red 091473306 R23.2 0796099 Facial flushing consistent ly occurring with alcohol intake even if it is just 1 drink. We will check a full antibody panel including barley, wheat, rye, corn and potato. Rule out an acquired sensitivit y or allergy Hyperlipidemia 75638450 E78.5 3289080 History of hyperlipid emia start Zetia 10 mg daily and repeat fasting labs in June. Patient agrees to this treatment plan now Cobalamin deficiency 190 728270 E53.8 011745 Screening B12 and folate labs with history of B12 deficiency Hypothyroidism 84280667 E03.9 Patient is taking Synthroid 75 mcg daily and is due for thyroid function labs Long-term current use of drug therapy 284729578 Z79.899 31908145 Health Concerns Section Related Observation LastModified by Organization Detai ls LastModified Time None Recorded Concern Status LastModified by Organization Details LastModified Time None Recorded Payers Encounter Date Sequence Insurance Name Policy Number Policy La Covered Member ID La Member ID Guarantor Name 03/19/2025 1 [facility] [id number] Zari Finley [id number] Zari Finley Notes Date Note Type Note Provider Name and Address Organization Details Recorded Time 03/19/2025 text/html Pt c/o of skin like problems states that she has noticed some redness no itching per pt she hasn't changed diet, or anything new states that she has noticed about 6 mo ago she had 1 alcohol drink and she noticed some flush to her face. States that she also noticed the same thing when she had a drink at home and it happened again.Discuss meds.Pt hasn't seen an flowers salesperson recently and pt has seen a derm recently for a mole. Patient also has hyperlipidemia and has not started any treatment yet but she would like to discuss the results and what the non statin options are.Also history of hypothyroidism on high-dose supplement. LOURDES Encarnacion Attn: Accounting,[address] [facility], [place], [address], [facility] - [facility] 03/31/2025 01:12:19 OBGyn Episode No OBEpisode recorded.
--- OUTSIDE RECORDS SUMMARY | 2025-04-10 18:28 | XMS_ITS | Clinical Summary ---
Author Organization [facility] al Address [address] [place] [address] Care Team Providers Care Pediatric Allergist Name Role Phone Eamon Yeboahdoug FREED Primary Care Pr ovider Latanya Crow MD Unavailable Luis Felipe Wayne MD Unavailable [phone] Aretha Lee NP Unavailable Margoth Leigh PhD Unavailable [phone] Allergies No known active allergies Medications flu vac ts 2016-,4 yr,up,-PF (FLUVIRIN 4252-4405, PF,) 45 mcg (15 mcg x 3)/0.5 mL syringe Fluvirin 9329-4285 (PF) 45 mcg(15 mcg x3)/0.5 mL intramuscular syringe ADM 0.5ML IM UTD Active Synthroid 75 mcg tablet Take 1 tablet (75 mcg total) by mouth daily 11/27/19 23 Active nystatin cream APPLY TOPICALLY UNDER THE BREATS TWICE DAILY NEEDED FOR IRRITATION Active mupirocin (BACTROBAN) 2 % ointment APPLY SMALL AMOUNT TOPICALLY TO THE AFFECTED AREA THREE TIMES DAILY FOR 5 DAYS 11/20/19 24 Active clotrimazole-b etamethasone (LOTRISONE) cream APPLY TO THE AFFECTED AND SURROUNDING AREAS OF SKIN BY TOPICAL ROUTE 2 TIMES PER DAY IN THE MORNING AND EVENING FOR 2 WEEKS Active clobetasoL (TEMOVATE) 0.05 % cream APPLY TOPICALLY TO THE AFFECTED AREA TWICE DAILY Active hydrocortisone (ANUSOL-HC) 25 mg suppositoryInd ications:Hemor rhoids Insert 1 suppository (25 mg total) into the rectum 2 (two) times a day as needed for hemorrhoids 30 suppository 02/12/20 24 Active docusate sodium (COLACE) 100 mg capsuleIndicat ions:constipat ion Take 1 capsule (100 mg total) by mouth daily 30 capsule 02/12/20 24 Active Active Problems Problem Noted Date Diagnosed Date Meningioma 01/06/2021 Medical History Medical History Date Comments Benign neoplasm of cerebral meninges (HCC) 2009 Social History Tobacco Use Types Packs/Day Years Used Date Smoking Tobacco: Never Personal Safety Answer Date Recorded Getting School Help Needed Not on file 06/14 Comments Unknown Sex and Gender Information Value Date Recorded Sex Assigned at Not on file 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 Gender Identity Not on file Sexual Orientation Not on file Last Filed Vital Signs Vital Sign Reading Time Taken Comments Blood Pressure 115/75 02/12/2024 8:29 AM CDT Pulse 69 02/12/2024 8:29 AM CDT Temperature 36.7 C (98 F) 02/12/2024 8:29 AM CDT Respiratory Rate 20 02/12/2024 8:29 AM CDT Oxygen Saturation 99% 02/12/2024 8:29 AM CDT Inhaled Oxygen Concentration - - Weight 76.6 kg (168 lb 14.4 oz) 02/12/2024 8:29 AM CDT Height 172.7 cm (5' 8) 02/12/2024 8:29 AM CDT Body Mass Index 25.68 02/12/2024 8:29 AM CDT Plan of Treatment Health Maintenance Due Date Last Done Comments Breast Cancer Screening-Mammogram 1966 Cervical Cancer Screening 1966 Colon Cancer Screening-Colonoscopy 1966 Depression Screening 1966 Hepatitis C Screening 1966 DTaP/Tdap/Td Vaccine (1 - Tdap) 1977 Hepatitis B Screening 1984 Regular Well Visit/Exam 18-64 1984 Zoster Vaccine (1 of 2) 2016 Covid-19 Vaccine (2024- season) 2024 07/19/2020, 06/18/2020, 05/26/2020 Influenza Vaccine (#1) 2024 , 04/06/2019, 03/09/2017, Additional history exists Pneumococcal vaccine <65 Aged Out No longer eligible based on patient's age to complete this topic Insurance [facility] PLUS [facility] PLUS [facility] PLUS Care Teams Pediatric Allergist Relationship Specialty Start Date End Date Kira Yeboah PA PCP - General 03/01/17 Latanya Crow MD Radiation Oncologist Radiation Oncology 01/05/21 Luis Felipe Wayne MD Surgeon Neurosurgery 01/05/21 Aretha Lee NP Nurse Practitioner Neurosurgery 01/05/21 Margoth Leigh, PhD Nurse Practitioner Radiation Oncology 01/05/21
--- OUTSIDE RECORDS SUMMARY | 2025-04-10 18:29 | XMS_ITS | Data Portability ---
Author Organization [facility] Sean Diop Address [address] [place] [address] Care Team Providers Care Utility Mechanic Name Role Phone BIN JOHNSTON Primary Care Provider Unavailab le Assessment Encounter Date Assessment Date Assessment LastModified by Organization Details LastModified Time 11/20/2023 11/20/2023 Mammogram: Planned soon Colonoscopy: Less than 5 years ago she thinks. will await records transfer to determine f/u date Eye exam: Just completed spring 2023 Dental exam: UTD Pap smear: planned soon with Dr. Roshan hurst Not available 11/20/2023 10:13:04 10/03/2024 10/03/2024 Mammogram: March 2024 Colonoscopy: 02/10/2020 polyp repeat 5 years Eye exam: Up-to-date Dental exam: UTD Pap smear: planned soon with Dr. Roshan hurst Not available 10/03/2024 10:14:17 Plan of Treatment Reminders Order Date Submit Date Provider Last Modified By Organization Details Last Modified Time Details Appointments None recorded. Lab TSH + free T4, serum 2024 026 [email or web address] [facility], [address], [place], [address], 12:46:42 lipid panel, serum 2024 026 [email or web address] [facility], [address], [place], [address], 12:46:42 CMP, serum or plasma 2024 026 [email or web address] [facility], [address], [place], [address], 12:46:42 cobalamin and folate panel, serum 2024 026 [email or web address] [facility], [address], [place], [address], 12:46:42 barley ige, serum 2024 025 EDMUND [facility], [address], [place], [address], 19:07:54 wheat ige, serum 2024 025 EDMUNDRICHARD [facility], [address], [place], [address], 19:07:23 rye ige, serum 2024 025 STILLWATER [facility], [address], [place], [address], 19:07:54 rye IgG Ab, quantitativ e, serum 2024 025 EDMUNDRICHARD [facility], [address], [place], [address], 19:07:55 corn ige, serum 2024 025 EDMUND [facility], [address], [place], [address], 19:07:53 corn igg, serum 2024 025 EDMUND [facility], [address], [place], [address], 19:07:55 potato ige, serum 2024 025 [facility]MUND [facility], [address], [place], [address], 5 19:07:53 lipid panel, serum 2024 025 [place] [facility], [address], [place], [address], 5 07:07:21 CBC w/ auto diff 2024 025 EDMUND [facility], [address], [place], [address], 5 07:07:27 CMP, serum or plasma 2024 025 [facility] [facility], [address], [place], [address], 5 07:07:23 vitamin B12 + folate, serum or blood 2024 025 [facility] [facility], [address], [place], [address], 5 07:07:25 HbA1c (hemoglobin A1c), blood 2024 025 [facility], [address], [place], [address], 5 07:07:26 TSH + free T4, serum 2024 025 [facility] [facility], [address], [place], [address], 5 07:07:22 T3, free, serum or plasma 2024 025 [facility] [facility], [address], [place], [address], 5 07:07:29 CRP, high sensitivity , serum or plasma 2023 024 [facility], [address], [place], [address], 4 05:37:37 lipid panel, serum 2023 024 [facility], [address], [place], [address], 4 05:37:38 CBC w/ auto diff 2023 024 [facility], [address], [place], [address], 4 05:37:41 CMP, serum or plasma 2023 024 [facility], [address], [place], [address], 4 05:37:39 vitamin B12 + folate, serum or blood 2023 024 [facility], [address], [place], [address], 4 05:37:40 HbA1c (hemoglobin A1c), blood 2023 024 [facility], [address], [place], [address], 4 05:37:40 TSH + free T4, serum 2023 024 [facility], [address], [place], [address], 4 05:37:38 T3, free, serum or plasma 2023 024 [facility], [address], [place], [address], 4 05:37:41 Referral None recorded. Procedures None recorded. Surgeries None recorded. Imaging CT, coronary calcium score 2023 024 [facility], [address], [place], [address], 4 14:22:33 exercise stress test 2023 024 [facility], [address], [place], [address], 4 10:53:36 Medication Orders metronidazo le 0.75 % topical cream 2024 025 [id number], [address], [place], [id number], 5 12:33:53 Zetia 10 mg tablet 2024 025 [facility] #[id number], [address], [place], [id number], 5 12:47:01 mupirocin 2 % topical ointment 2023 025 [facility] #[id number], [address], [place], [id number], 5 09:59:54 Patient TargetsNo targets recorded. Patient Instructions Encounter Date Encounter Id Patient Instructions Last Modified By Organization Details Last Modified Time 10/03/2024 [id number] A healthy lifestyle: care instructions [email or web address] Not available 10/03/2024 10:37:50 Reason for Referral None Reported. Results Created Date Observation Date Name Description Value Unit Range Abnormal Flag Note LastModifiedBy Organization Detail LastModifiedTime 11/28/19 24 11/29/2023 C-MARINO CTIVE PROTE IN, CARDI AC C-reactive protein, cardiac 2.68 mg/L 0.00-3 .00 Relat tegan Risk for Futur e Cardi ovasc ular Event Low <1.00 [facility] 1.00 - 3.00 High >3.00 Not Available [facility] ([facility]) [address] [place], [address], 11/29/2023 05:37:37 11/28/19 24 11/29/2023 LIPID PANEL W/ CHOL/ HDL RATIO cholesterol, total 192 mg/dL 100-19 9 Not Available [facility] ([facility]) [address] [place], [address], 11/29/2023 05:37:38 11/28/19 24 11/29/2023 LIPID PANEL W/ CHOL/ HDL RATIO triglyceride s 205 mg/dL 0-149 above high normal Not Available [facility] ([facility]) [address] [place], [address], 11/29/2023 05:37:38 11/28/19 24 11/29/2023 LIPID PANEL W/ CHOL/ HDL RATIO HDL cholesterol 34 mg/dL >39 below low normal Not Available [facility] ([facility]) [address] [place], [address], 11/29/2023 05:37:38 11/28/19 24 11/29/2023 LIPID PANEL W/ CHOL/ HDL RATIO VLDL cholesterol traci 36 mg/dL 5-40 Not Available [facility] ([facility]) [address] [place], [address], 11/29/2023 05:37:38 11/28/19 24 11/29/2023 LIPID PANEL W/ CHOL/ HDL RATIO LDL chol calc ([facility]) 122 mg/dL 0-99 above high normal Not Available [facility] ([facility]) [address] [place], [address], 11/29/2023 05:37:38 11/28/19 24 11/29/2023 LIPID PANEL W/ CHOL/ HDL RATIO T. chol/HDL ratio 5.6 ratio 0.0-4. 4 above high normal T. Chol/ HDL Ratio Men Women 1/2 Avg.R isk 3.4 3.3 Avg.R isk 5.0 4.4 2X Avg.R isk 9.6 7.1 3X Avg.R isk 23.4 11.0 Not Available [facility] ([facility]) [address] [place], [address], 11/29/2023 05:37:38 11/28/19 24 11/29/2023 TSH+F REE T4 TSH 2.030 uIU/m L 0.450- 4.500 Not Available [facility] ([facility]) [address] [place], [address], 11/29/2023 05:37:38 11/28/19 24 11/29/2023 TSH+F REE T4 T4,free(dire ct) 1.04 NG/dL 0.82-1 .77 Not Available [facility] ([facility]) [address] [place], [address], 11/29/2023 05:37:38 11/28/19 24 11/29/2023 COMP. METAB OLIC PANEL (14) glucose 89 mg/dL 70-99 Not Available [facility] ([facility]) [address] [place], [address], 11/29/2023 05:37:39 11/28/19 24 11/29/2023 COMP. METAB OLIC PANEL (14) BUN 15 mg/dL 6-24 Not Available [facility] ([facility]) [address] [place], [address], 11/29/2023 05:37:39 11/28/19 24 11/29/2023 COMP. METAB OLIC PANEL (14) creatinine 0.90 mg/dL 0.57-1 .00 Not Available [facility] ([facility]) [address] [place], [address], 11/29/2023 05:37:39 11/28/19 24 11/29/2023 COMP. METAB OLIC PANEL (14) eGFR 75 mL/mi n/1.7 3 >59 Not Available [facility] ([facility]) [address] [facility], [place], [address], 11/29/2023 05:37:39 11/28/19 24 11/29/2023 COMP. METAB OLIC PANEL (14) BUN/creatini ne ratio 17 9-23 Not Available [facility] ([facility]) [address] [facility], [place], [address], 11/29/2023 05:37:39 11/28/19 24 11/29/2023 COMP. METAB OLIC PANEL (14) sodium 137 mmol/ L 134-14 4 Not Available [facility] ([facility]) [address] [facility], [place], [address], 11/29/2023 05:37:39 11/28/19 24 11/29/2023 COMP. METAB OLIC PANEL (14) potassium 4.6 mmol/ L 3.5-5. 2 Not Available [facility] ([facility]) [address] [facility], [place], [address], 11/29/2023 05:37:39 11/28/19 24 11/29/2023 COMP. METAB OLIC PANEL (14) chloride 99 mmol/ L 96-106 Not Available [facility] ([facility]) [address] [facility], [place], [address], 11/29/2023 05:37:39 11/28/19 24 11/29/2023 COMP. METAB OLIC PANEL (14) carbon dioxide, total 24 mmol/ L 20-29 Not Available [facility] ([facility] [place] [facility]) [address] [facility] [place], [address], 11/29/2023 05:37:39 11/28/19 24 11/29/2023 COMP. METAB OLIC PANEL (14) calcium 9.6 mg/dL 8.7-10 .2 Not Available [facility] ([facility]) [address] [place], [address], 11/29/2023 05:37:39 11/28/19 24 11/29/2023 COMP. METAB OLIC PANEL (14) protein, total 7.0 g/dL 6.0-8. 5 Not Available [facility] ([facility]) [address] [place], [address], 11/29/2023 05:37:39 11/28/19 24 11/29/2023 COMP. METAB OLIC PANEL (14) albumin 4.3 g/dL 3.8-4. 9 Not Available [facility] ([facility]) [address] [place], [address], 11/29/2023 05:37:39 11/28/19 24 11/29/2023 COMP. METAB OLIC PANEL (14) globulin, total 2.7 g/dL 1.5-4. 5 Not Available [facility] ([facility]) [address] [place], [address], 11/29/2023 05:37:39 11/28/19 24 11/29/2023 COMP. METAB OLIC PANEL (14) bilirubin, total 0.6 mg/dL 0.0-1. 2 Not Available [facility] ([facility]) [address] [place], [address], 11/29/2023 05:37:39 11/28/19 24 11/29/2023 COMP. METAB OLIC PANEL (14) alkaline phosphatase 102 IU/L 44-121 Not Available [facility] ([facility]) [address] [place], [address], 11/29/2023 05:37:39 11/28/19 24 11/29/2023 COMP. METAB OLIC PANEL (14) AST (SGOT) 18 IU/L 0-40 Not Available [facility] ([facility]) [address] [place], [address], 11/29/2023 05:37:39 11/28/19 24 11/29/2023 COMP. METAB OLIC PANEL (14) ALT (SGPT) 8 IU/L 0-32 Not Available [facility] ([facility]) [address] [facility], [place], [address], 11/29/2023 05:37:39 11/28/19 24 11/29/2023 VITAM IN B12 AND FOLAT E vitamin B12 267 pg/mL 232-12 45 Not Available [facility] ([facility]) [address] [facility], [place], [address], 11/29/2023 05:37:39 11/28/19 24 11/29/2023 VITAM IN B12 AND FOLAT E folate (folic acid), serum 9.3 NG/mL >3.0 A serum folat e alfonso ntrat ion of less than 3.1 ng/mL is consi dered to repre sent clini traci defic iency . Not Available [facility] ([facility]) [address] [facility], [place], [address], 11/29/2023 05:37:39 11/28/19 24 11/29/2023 HEMOG LOBIN A1C hemoglobin A1C 5.8 % 4.8-5. 6 above high normal Predi abete s: 5.7 - 6.4 Diabe yenifer: >6.4 Glyce gus contr ol for adult s with diabe yenifer: <7.0 Not Available [facility] ([facility]) [address] [facility], [place], [address], 11/29/2023 05:37:40 11/28/19 24 11/29/2023 CBC WITH DIFFE RENTI AL/PL ATELE T WBC 7.1 x10e3 /uL 3.4-10 .8 Not Available [facility] ([facility]) [address] [facility], [place], [address], 11/29/2023 05:37:41 11/28/19 24 11/29/2023 CBC WITH DIFFE RENTI AL/PL ATELE T RBC 4.02 x10e6 /uL 3.77-5 .28 Not Available [facility] ([facility]) [address] [facility], [place], [address], 11/29/2023 05:37:41 11/28/19 24 11/29/2023 CBC WITH DIFFE RENTI AL/PL ATELE T hemoglobin 12.5 g/dL 11.1-1 5.9 Not Available [facility] ([facility]) [address] [facility], [place], [address], 11/29/2023 05:37:41 11/28/19 24 11/29/2023 CBC WITH DIFFE RENTI AL/PL ATELE T hematocrit 37.4 % 34.0-4 6.6 Not Available [facility] ([facility]) [address] [facility], [place], [address], 11/29/2023 05:37:41 11/28/19 24 11/29/2023 CBC WITH DIFFE RENTI AL/PL ATELE T MCV 93 fL 79-97 Not Available [facility] ([facility]) [address] [place], [address], 11/29/2023 05:37:41 11/28/19 24 11/29/2023 CBC WITH DIFFE RENTI AL/PL ATELE T MCH 31.1 pg 26.6-3 3.0 Not Available [facility] ([facility]) [address] [place], [address], 11/29/2023 05:37:41 11/28/19 24 11/29/2023 CBC WITH DIFFE RENTI AL/PL ATELE T MCHC 33.4 g/dL 31.5-3 5.7 Not Available [facility] ([facility]) [address] [place], [address], 11/29/2023 05:37:41 11/28/19 24 11/29/2023 CBC WITH DIFFE RENTI AL/PL ATELE T RDW 13.1 % 11.7-1 5.4 Not Available [facility] ([facility]) [address] [facility], [place], [address], 11/29/2023 05:37:41 11/28/19 24 11/29/2023 CBC WITH DIFFE RENTI AL/PL ATELE T platelets 458 x10e3 /uL 150-45 0 above high normal Not Available [facility] ([facility]) [address] [facility], [place], [address], 11/29/2023 05:37:41 11/28/19 24 11/29/2023 CBC WITH DIFFE RENTI AL/PL ATELE T neutrophils 55 % notest ab. Not Available [facility] ([facility]) [address] [facility], [place], [address], 11/29/2023 05:37:41 11/28/19 24 11/29/2023 CBC WITH DIFFE RENTI AL/PL ATELE T lymphs 34 % notest ab. Not Available [facility] ([facility]) [address] [facility], [place], [address], 11/29/2023 05:37:41 11/28/19 24 11/29/2023 CBC WITH DIFFE RENTI AL/PL ATELE T monocytes 6 % notest ab. Not Available [facility] ([facility]) [address] [facility], [place], [address], 11/29/2023 05:37:41 11/28/19 24 11/29/2023 CBC WITH DIFFE RENTI AL/PL ATELE T eos 4 % notest ab. Not Available [facility] ([facility]) [address] [facility], [place], [address], 11/29/2023 05:37:41 11/28/19 24 11/29/2023 CBC WITH DIFFE RENTI AL/PL ATELE T basos 1 % notest ab. Not Available [facility] ([facility]) [address] [facility], [place], [address], 11/29/2023 05:37:41 11/28/19 24 11/29/2023 CBC WITH DIFFE RENTI AL/PL ATELE T neutrophils (absolute) 3.9 x10e3 /uL 1.4-7. 0 Not Available [facility] ([facility]) [address] [facility], [place], [address], 11/29/2023 05:37:41 11/28/19 24 11/29/2023 CBC WITH DIFFE RENTI AL/PL ATELE T lymphs (absolute) 2.4 x10e3 /uL 0.7-3. 1 Not Available [facility] ([facility]) [address] [facility], [place], [address], 11/29/2023 05:37:41 11/28/19 24 11/29/2023 CBC WITH DIFFE RENTI AL/PL ATELE T monocytes(ab solute) 0.4 x10e3 /uL 0.1-0. 9 Not Available [facility] ([facility]) [address] [facility], [place], [address], 11/29/2023 05:37:41 11/28/19 24 11/29/2023 CBC WITH DIFFE RENTI AL/PL ATELE T eos (absolute) 0.3 x10e3 /uL 0.0-0. 4 Not Available [facility] ([facility]) [address] [place], [address], 11/29/2023 05:37:41 11/28/19 24 11/29/2023 CBC WITH DIFFE RENTI AL/PL ATELE T baso (absolute) 0.1 x10e3 /uL 0.0-0. 2 Not Available [facility] ([facility]) [address] [place], [address], 11/29/2023 05:37:41 11/28/19 24 11/29/2023 CBC WITH DIFFE RENTI AL/PL ATELE T immature granulocytes 0 % notest ab. Not Available [facility] ([facility]) [address] [facility], [place], [address], 11/29/2023 05:37:41 11/28/19 24 11/29/2023 CBC WITH DIFFE RENTI AL/PL ATELE T immature grans (abs) 0.0 x10e3 /uL 0.0-0. 1 Not Available [facility] ([facility]) [address] [facility], [place], [address], 11/29/2023 05:37:41 11/28/19 24 11/29/2023 TRIIO DOTHY [place] E (T3), FREE triiodothyro nine (T3), free 2.1 pg/mL 2.0-4. 4 Not Available [facility] ([facility]) [address] [place], [address], 11/29/2023 05:37:41 10/10/19 25 10/10/2024 LIPID PANEL W/ CHOL/ HDL RATIO cholesterol, total 208 mg/dL 100-19 9 above high normal Not Available [facility] ([facility]) [address] [place], [address], 10/15/2024 07:07:21 10/10/19 25 10/10/2024 LIPID PANEL W/ CHOL/ HDL RATIO triglyceride s 211 mg/dL 0-149 above high normal Not Available [facility] ([facility]) [address] [place], [address], 10/15/2024 07:07:21 10/10/19 25 10/10/2024 LIPID PANEL W/ CHOL/ HDL RATIO HDL cholesterol 35 mg/dL >39 below low normal Not Available [facility] ([facility]) [address] [place], [address], 10/15/2024 07:07:21 10/10/19 25 10/10/2024 LIPID PANEL W/ CHOL/ HDL RATIO VLDL cholesterol traci 38 mg/dL 5-40 Not Available [facility] ([facility]) [address] [place], [address], 10/15/2024 07:07:21 10/10/19 25 10/10/2024 LIPID PANEL W/ CHOL/ HDL RATIO LDL chol calc ([facility]) 135 mg/dL 0-99 above high normal Not Available [facility] ([facility]) [address] [place], [address], 10/15/2024 07:07:21 10/10/19 25 10/10/2024 LIPID PANEL W/ CHOL/ HDL RATIO T. chol/HDL ratio 5.9 ratio 0.0-4. 4 above high normal T. Chol/ HDL Ratio Men Women 1/2 Avg.R isk 3.4 3.3 Avg.R isk 5.0 4.4 2X Avg.R isk 9.6 7.1 3X Avg.R isk 23.4 11.0 Not Available [facility] ([facility]) [address] [place], [address], 10/15/2024 07:07:21 10/10/19 25 10/10/2024 TSH+F REE T4 TSH 1.100 uIU/m L 0.450- 4.500 Not Available [facility] ([facility]) [address] [place], [address], 10/15/2024 07:07:22 10/10/19 25 10/10/2024 TSH+F REE T4 T4,free(dire ct) 1.07 NG/dL 0.82-1 .77 Not Available [facility] ([facility]) [address] [place], [address], 10/15/2024 07:07:22 10/10/19 25 10/10/2024 COMP. METAB OLIC PANEL (14) glucose 87 mg/dL 70-99 Not Available [facility] ([facility]) [address], [place], [address], 10/15/2024 07:07:23 10/10/19 25 10/10/2024 COMP. METAB OLIC PANEL (14) BUN 14 mg/dL 6-24 Not Available [facility] ([facility]) [address] [facility], [place], [address], 10/15/2024 07:07:23 10/10/19 25 10/10/2024 COMP. METAB OLIC PANEL (14) creatinine 0.85 mg/dL 0.57-1 .00 Not Available [facility] ([facility]) [address] [facility] [place], [address], 10/15/2024 07:07:23 10/10/19 25 10/10/2024 COMP. METAB OLIC PANEL (14) eGFR 79 mL/mi n/1.7 3 >59 Not Available [facility] ([facility]) [address] [facility], [place], [address], 10/15/2024 07:07:23 10/10/19 25 10/10/2024 COMP. METAB OLIC PANEL (14) BUN/creatini ne ratio 16 9-23 Not Available [facility] ([facility]) [address] [facility], [place], [address], 10/15/2024 07:07:23 10/10/19 25 10/10/2024 COMP. METAB OLIC PANEL (14) sodium 137 mmol/ L 134-14 4 Not Available [facility] ([facility]) [address] [facility] [place], [address], 10/15/2024 07:07:23 10/10/19 25 10/10/2024 COMP. METAB OLIC PANEL (14) potassium 4.8 mmol/ L 3.5-5. 2 Not Available [facility] ([facility]) [address] [facility], [place], [address], 10/15/2024 07:07:23 10/10/19 25 10/10/2024 COMP. METAB OLIC PANEL (14) chloride 101 mmol/ L 96-106 Not Available [facility] ([facility]) [address] [facility] [place], [address], 10/15/2024 07:07:23 10/10/19 25 10/10/2024 COMP. METAB OLIC PANEL (14) carbon dioxide, total 24 mmol/ L 20-29 Not Available [facility] ([facility]) [address] [facility], [place], [address], 10/15/2024 07:07:23 10/10/19 25 10/10/2024 COMP. METAB OLIC PANEL (14) calcium 9.7 mg/dL 8.7-10 .2 Not Available [facility] ([facility]) [address] [facility] [place], [address], 10/15/2024 07:07:23 10/10/19 25 10/10/2024 COMP. METAB OLIC PANEL (14) protein, total 6.9 g/dL 6.0-8. 5 Not Available [facility] ([facility]) [address] [facility] [place], [address], 10/15/2024 07:07:23 10/10/19 25 10/10/2024 COMP. METAB OLIC PANEL (14) albumin 4.4 g/dL 3.8-4. 9 Not Available [facility] ([facility]) [address] [facility] [place], [address], 10/15/2024 07:07:23 10/10/19 25 10/10/2024 COMP. METAB OLIC PANEL (14) globulin, total 2.5 g/dL 1.5-4. 5 Not Available [facility] ([facility]) [address] [facility] [place], [address], 10/15/2024 07:07:23 10/10/19 25 10/10/2024 COMP. METAB OLIC PANEL (14) bilirubin, total 0.4 mg/dL 0.0-1. 2 Not Available [facility] ([facility]) [address] [place], [address], 10/15/2024 07:07:23 10/10/19 25 10/10/2024 COMP. METAB OLIC PANEL (14) alkaline phosphatase 98 IU/L 44-121 Not Available [facility] ([facility]) [address] [place], [address], 10/15/2024 07:07:23 10/10/19 25 10/10/2024 COMP. METAB OLIC PANEL (14) AST (SGOT) 21 IU/L 0-40 Not Available [facility] ([facility]) [address] [place], [address], 10/15/2024 07:07:23 10/10/19 25 10/10/2024 COMP. METAB OLIC PANEL (14) ALT (SGPT) 12 IU/L 0-32 Not Available [facility] ([facility]) [address] [place], [address], 10/15/2024 07:07:23 10/10/19 25 10/11/2024 HOMOC Y+MET HYL homocyst(E)i ne 13.0 umol/ L 0.0-14 .5 Not Available [facility] ([facility]) [address] [place], [address], 10/15/2024 07:07:25 10/10/19 25 10/15/2024 HOMOC Y+MET HYL methylmaloni c acid, serum 225 nmol/ L 0-378 Not Available [facility] ([facility]) [address] [place], [address], 10/15/2024 07:07:25 10/10/19 25 10/10/2024 VITAM IN B12+F OLATE vitamin B12 213 pg/mL 232-12 45 below low normal Not Available [facility] ([facility]) [address] [facility], [place], [address], 10/15/2024 07:07:25 10/10/19 25 10/10/2024 VITAM IN B12+F OLATE folate (folic acid), serum 8.8 NG/mL >3.0 A serum folat e alfonso ntrat ion of less than 3.1 ng/mL is consi dered to repre sent clini traci defic iency . Not Available [facility] ([facility]) [address] [facility], [place], [address], 10/15/2024 07:07:25 10/10/19 25 10/10/2024 HEMOG LOBIN A1C hemoglobin A1C 5.6 % 4.8-5. 6 Predi abete s: 5.7 - 6.4 Diabe yenifer: >6.4 Glyce gus contr ol for adult s with diabe yenifer: <7.0 Not Available [facility] ([facility]) [address] [facility], [place], [address], 10/15/2024 07:07:26 10/10/19 25 10/09/2024 CBC WITH DIFFE RENTI AL/PL ATELE T WBC 6.7 x10e3 /uL 3.4-10 .8 Not Available [facility] ([facility]) [address] [place], [address], 10/15/2024 07:07:27 10/10/19 25 10/09/2024 CBC WITH DIFFE RENTI AL/PL ATELE T RBC 4.05 x10e6 /uL 3.77-5 .28 Not Available [facility] ([facility]) [address] [place], [address], 10/15/2024 07:07:27 10/10/19 25 10/09/2024 CBC WITH DIFFE RENTI AL/PL ATELE T hemoglobin 12.5 g/dL 11.1-1 5.9 Not Available [facility] ([facility]) [address] [facility], [place], [address], 10/15/2024 07:07:27 10/10/19 25 10/09/2024 CBC WITH DIFFE RENTI AL/PL ATELE T hematocrit 38.6 % 34.0-4 6.6 Not Available [facility] ([facility]) [address] [facility], [place], [address], 10/15/2024 07:07:27 10/10/19 25 10/09/2024 CBC WITH DIFFE RENTI AL/PL ATELE T MCV 95 fL 79-97 Not Available [facility] ([facility]) [address] [facility], [place], [address], 10/15/2024 07:07:27 10/10/19 25 10/09/2024 CBC WITH DIFFE RENTI AL/PL ATELE T MCH 30.9 pg 26.6-3 3.0 Not Available [facility] ([facility]) [address] [facility], [place], [address], 10/15/2024 07:07:27 10/10/19 25 10/09/2024 CBC WITH DIFFE RENTI AL/PL ATELE T MCHC 32.4 g/dL 31.5-3 5.7 Not Available [facility] ([facility]) [address] [place], [address], 10/15/2024 07:07:27 10/10/19 25 10/09/2024 CBC WITH DIFFE RENTI AL/PL ATELE T RDW 13.1 % 11.7-1 5.4 Not Available [facility] ([facility]) [address] [facility], [place], [address], 10/15/2024 07:07:27 10/10/19 25 10/09/2024 CBC WITH DIFFE RENTI AL/PL ATELE T platelets 393 x10e3 /uL 150-45 0 Not Available [facility] ([facility]) [address] [facility], [place], [address], 10/15/2024 07:07:27 10/10/19 25 10/09/2024 CBC WITH DIFFE RENTI AL/PL ATELE T neutrophils 50 % notest ab. Not Available [facility] ([facility]) [address] [facility], [place], [address], 10/15/2024 07:07:27 10/10/19 25 10/09/2024 CBC WITH DIFFE RENTI AL/PL ATELE T lymphs 36 % notest ab. Not Available [facility] ([facility]) [address] [facility], [place], [address], 10/15/2024 07:07:27 10/10/19 25 10/09/2024 CBC WITH DIFFE RENTI AL/PL ATELE T monocytes 7 % notest ab. Not Available [facility] ([facility]) [address] [facility], [place], [address], 10/15/2024 07:07:27 10/10/19 25 10/09/2024 CBC WITH DIFFE RENTI AL/PL ATELE T eos 5 % notest ab. Not Available [facility] ([facility]) [address] [facility], [place], [address], 10/15/2024 07:07:27 10/10/19 25 10/09/2024 CBC WITH DIFFE RENTI AL/PL ATELE T basos 2 % notest ab. Not Available [facility] ([facility]) [address] [facility], [place], [address], 10/15/2024 07:07:27 10/10/19 25 10/09/2024 CBC WITH DIFFE RENTI AL/PL ATELE T neutrophils (absolute) 3.4 x10e3 /uL 1.4-7. 0 Not Available [facility] ([facility]) [address] [facility], [place], [address], 10/15/2024 07:07:27 10/10/19 25 10/09/2024 CBC WITH DIFFE RENTI AL/PL ATELE T lymphs (absolute) 2.4 x10e3 /uL 0.7-3. 1 Not Available [facility] ([facility]) [address] [facility], [place], [address], 10/15/2024 07:07:27 10/10/19 25 10/09/2024 CBC WITH DIFFE RENTI AL/PL ATELE T monocytes(ab solute) 0.5 x10e3 /uL 0.1-0. 9 Not Available [facility] ([facility]) [address] [facility], [place], [address], 10/15/2024 07:07:27 10/10/19 25 10/09/2024 CBC WITH DIFFE RENTI AL/PL ATELE T eos (absolute) 0.3 x10e3 /uL 0.0-0. 4 Not Available [facility] ([facility]) [address] [facility], [place], [address], 10/15/2024 07:07:27 10/10/19 25 10/09/2024 CBC WITH DIFFE RENTI AL/PL ATELE T baso (absolute) 0.1 x10e3 /uL 0.0-0. 2 Not Available [facility] ([facility]) [address] [facility], [place], [address], 10/15/2024 07:07:27 10/10/19 25 10/09/2024 CBC WITH DIFFE RENTI AL/PL ATELE T immature granulocytes 0 % notest ab. Not Available [facility] ([facility]) [address] [place], [address], 10/15/2024 07:07:27 10/10/19 25 10/09/2024 CBC WITH DIFFE RENTI AL/PL ATELE T immature grans (abs) 0.0 x10e3 /uL 0.0-0. 1 Not Available [facility] ([facility]) [address] [place], [address], 10/15/2024 07:07:27 10/10/19 25 10/10/2024 TRIIO DOTHY [place] E (T3), FREE triiodothyro nine (T3), free 2.4 pg/mL 2.0-4. 4 Not Available [facility] ([facility]) [address] [place], [address], 10/15/2024 07:07:29 03/19/20 25 03/26/2025 F008- IGE CORN H410-ApC corn 0.16 kU/L class0 /I abnormal Not Available [facility] ([facility]) [address] [place], [address], 03/26/2025 19:07:52 03/19/20 25 03/26/2025 F035- IGE POTAT O, WHITE O220-VrK potato, white <0.10 kU/L class0 Not Available [facility] ([facility]) [address] [place], [address], 03/26/2025 19:07:53 03/19/20 25 03/26/2025 F006- IGE BARLE Y U025-CiO barley 0.15 kU/L class0 /I abnormal Not Available [facility] ([facility]) [address] [place], [address], 03/26/2025 19:07:54 03/19/20 25 03/26/2025 F005- IGE RYE O494-IqI rye <0.10 kU/L class0 Not Available [facility] ([facility]) [address] [place], [address], 03/26/2025 19:07:54 03/19/20 25 03/24/2025 F005- IGG RYE Q337-XuE rye 4.3 ug/mL 0.0-1. 9 above high normal Not Available [facility] ([facility]) [address] [place], [address], 03/26/2025 19:07:55 03/19/20 25 03/24/2025 F008- IGG CORN Q999-GtX corn 3.3 ug/mL 0.0-1. 9 above high normal Not Available [facility] ([facility]) [address] [place], [address], 03/26/2025 19:07:55 03/19/20 25 03/19/2025 WHEAT IGE [...] >100. 00 Very High Not Available [facility] ([facility]) [address] [place], [address], 03/27/2025 19:07:23 03/19/20 25 03/26/2025 WHEAT IGE W/COM PONEN T REFLE X K771-DvZ wheat <0.10 Not Available [facility] ([facility]) [address] [place], [address], 03/27/2025 19:07:23 03/19/20 25 03/26/2025 WHEAT IGE W/COM PONEN T REFLE X C774-KqW tri A 19(W-5 gliadin) <0.10 Not Available [facility] ([facility]) [address] [place], [address], 03/27/2025 19:07:23 03/19/20 25 03/27/2025 WHEAT IGE W/COM PONEN T REFLE X L914-SbD gliadin, wheat <0.10 Not Available [facility] ([facility]) [address] [facility], [place], [address], 03/27/2025 19:07:23 03/19/20 25 03/27/2025 WHEAT IGE W/COM PONEN T REFLE X reflex information NOT INDICA GUI Not Available [facility] ([facility]) [address] [facility], [place], [address], 03/27/2025 19:07:23 11/28/19 24 11/28/2023 CT, coron jerald calci um score No observ ation record ed. [facility] [address] , [place], [address], 11/28/2023 15:22:20 12/26/19 24 12/25/2023 exerc ise stres s test No observ ation record ed. [facility] [address] [facility], [place], [address], 12/26/2023 15:45:52 04/08/20 24 04/08/2024 MAMMO , scree nelson, digit al, bilat eral No observ ation record ed. [email or web address] [facility] [address] [facility] [address], [place], [address], 04/08/2024 18:00:20 Result Notes None recorded. Problems Name Problem SNOMED Code Status Onset Date Resolution Date Notes Provider Name and Address Organization Details Recorded Time Body mass index 25-29 - overweight 494854058 Active 2023 LOURDES Encarnacion Attn: Jackie ev,[address], [place], [address], [facility] - [facility] 4 10:04:11 [facility] 57717208 Active 2023 LOURDES Encarnacion Attn: Accountin g,[address] [facility], [place], [address], [place] [facility] 4 10:04:12 Long-term drug therapy Active 2023 LOURDES Encarnacion Attn: Accountin g,[address] [facility], [place], [address], [place] [facility] 4 10:04:12 Intracranial meningioma 051055099 Active 2023 LOURDES Encarnacion Attn: Accountin g,[address] [facility], [place], [address], [place] [facility] 4 10:23:07 Family history of coronary arterioscleros is 266082247 Active 2023 LOURDES Encarnacion Attn: Accountin g,[address] [facility], [place], [address], [place] [facility] 4 10:28:14 Overweight 402815299 Active 2024 LOURDES Encarnacion Attn: Accountin g,[address] [facility], [place], [address], [place] [facility] 5 10:21:17 Perioral dermatitis 037456384 Active 2024 LOURDES Encarnacion Attn: Accountin g,[address] [facility], [place], [address], [place] [facility] 5 01:10:01 Overweight in adulthood with body mass index of 25 or more but less than 30 613273693 Active 2024 LOURDES Encarnacion Attn: Accountin g,[address] [facility], [place], [address], [place] [facility] 5 01:10:09 Face goes red 877200160 Active 2024 LOURDES Encarnacion Attn: Accountin g,[address] [facility], [place], [address], [place] [facility] 5 01:10:36 Hyperlipidemia 52842490 Active 2024 LOURDES Encarnacion Attn: Jackie carreno,[address] [facility], [place], [address], [facility] 5 01:11:00 Cobalamin deficiency 438054995 Active 2024 LOURDES Encarnacion Attn: Jackie carreno,[address] [facility], [place], [address], [facility] 5 01:11:10 Long-term current use of drug therapy 592940296 Active 2024 LOURDES Encarnacion Attn: Jackie carreno,[address] [facility], [place], [address], [facility] 5 01:11:32 Problem Notes None recorded. Procedures Surgical History Date Name Laterality Status Provider Name and Address Organization Details Recorded Time Tonsillectomy completed Carroll Bucio MA [facility] 11/20/2023 10:39:19 Imaging Results None recorded. [...] Not Available Not Available Vitals Date Recorded Respiratory rate Provider Name a nd Address Organization Details Last Updated DateTime 10/03/2024 16 /min LOURDES Encarnacion Attn: Accounting,[address] [place], [address], [facility] 10/21/2024 09:11:16 Date Recorded Body height Body mass index (BMI) Body weight Oxygen saturation Heart rate Systolic And Diastolic Provider Name and Address Organization Details Last Updated DateTime 5 172.72 cm 25.7 kg/m2 00173.1 1 g 98 % 60 /min 116/80 mm[Hg] Carroll Bucio MA [facility] 5 10:03:09 Date Recorded Body height Respiratory rate Body mass index (BMI) Body weight Oxygen saturation Heart rate Systolic And Diastolic Provider Name and Address Organization Details Last Updated DateTime 4 172.72 cm 20 /min 25.9 kg/m2 57000.1 3 g 98 % 69 /min 108/78 mm[Hg] Carroll Bucio MA [facility] 4 10:00:24 Date Recorded Systolic And Diastolic Provider Name and Address Organization Details Last Updated DateTime 03/19/2025 110/80 mm[Hg] LOURDES Encarnacion Attn: Accounting,[address] [place], [address], [facility] 03/19/2025 12:41:05 Date Recorded Body height Body mass index (BMI) Body weight Respiratory rate Oxygen saturation Heart rate Systolic And Diastolic Provider Name and Address Organization Details Last Updated DateTime 5 172.72 cm 25.6 kg/m2 57576.6 7 g 18 /min 96 % 62 /min 124/82 mm[Hg] Carroll Bucio [place] - [facility] 12:28:05 Social History Question Answer Notes LastModified by Organizat ion Details LastModified Time Tobacco Smoking Status Never Smoker Carroll Bucio MA null, [place] - [place] 11/20/2023 09:57:09 Do You Have [...] preservative 2 completed Not Available [facility] 03/19/2025 12:09:47 Influenza, split virus, trivalent, preservative 3 completed Not Available [facility] 03/19/2025 12:09:47 Influenza, split virus, trivalent, PF 7 completed Not Available [facility] 03/19/2025 12:09:47 Influenza, split virus, quadrivalent, preservative 9 completed Not Available [facility] 03/19/2025 12:09:47 Influenza, split virus, quadrivalent, PF 0 completed Not Available [facility] 03/19/2025 12:09:47 COVID-19, mRNA, LNP-S, PF, 30 mcg/0.3 mL dose 1 completed Not Available [facility] 03/19/2025 12:09:47 COVID-19, mRNA, LNP-S, PF, 30 mcg/0.3 mL dose 1 completed Not Available [facility] 03/19/2025 12:09:47 COVID-19, mRNA, LNP-S, PF, 30 mcg/0.3 mL dose 1 completed Not Available [facility] 03/19/2025 12:09:47 Influenza, MDCK, quadrivalent, PF 1 completed Not Available [facility] 03/19/2025 12:09:47 COVID-19, mRNA, LNP-S, PF, 30 mcg/0.3 mL dose 1 completed Not Available [facility] 03/19/2025 12:09:47 COVID-19, mRNA, LNP-S, bivalent, PF, 50 mcg/0.5 mL or 25mcg/0.25 mL dose 2 completed Not Available [facility] 03/19/2025 12:09:47 Influenza, MDCK, quadrivalent, PF 2 completed Not Available [facility] 03/19/2025 12:09:47 zoster recombinant 3 completed Not Available [facility] 03/19/2025 12:09:47 zoster recombinant 3 completed Not Available [facility] 03/19/2025 12:09:47 Influenza, split virus, trivalent, PF 4 completed Not Available [facility] 03/19/2025 12:09:47 Past Encounters Encounter ID Performer Location Encounter Start Date Encounter Closed Date Diagnosis/Indication Diagnosis SNOMED-CT Code Diagnosis ICD10 Code Diagnosis IMO Codes Diagnosis Note [id number] Luis Felipe Helton MD [facility] [address] [place] [address] 11/20/2023 09:41:37 11/20/2023 11:29:11 Adult health examination 759488122 Z00.01 Annual wellness exam complete Body mass index 25-29 - overweight 402697602 Z68.25 BMI is 25.9 Hypothyroidism 18652030 E03.9 Patient is taking Synthroid 75 mcg daily and is due for thyroid function labs Long-term drug therapy 281718471 Z79.899 cmp, cbc and b12, folate labs are due Cholesterol screening 27 2251457 Z13.220 Fasting lipid panel is due Diabetes m ellitus screening 099385968 Z13.1 A1c screening is due Intracrani al meningioma 052315246 D32.0 due again for scan in 2024, no growth recently at all. Sees Radiation oncology at [facility]. Family his tory of coronary arteriosclerosis 093320860 Z82.49 Father had myocardial infarction in early 60's. Patient is interested in CT coronary calcium testing along with high sensitive C-reactive protein and an exercise stress test for coronary risk stratifica tion Nasal infection 98574380 3 J32.9 Rx for Bactroban ointment given to apply into the nares for the next 5 days just to help the membranes heal faster [id number] Luis Felipe Helton MD [facility] [address] [place] [address] 10/03/2024 09:49:36 10/03/2024 11:12:14 Overweight 322682220 E66.3 BMI is 25.7 Adult heal th examination 285719823 Z00.01 Annual wellness exam complete Hypothyroidism 19633468 E03.9 Patient is taking Synthroid 75 mcg daily and is due for thyroid function labs Intracrani al meningioma 491024976 D32.0 due again for scan in 2024, no growth recently at all. Sees Radiation oncology at [facility]. Long-term drug therapy 643170132 Z79.899 cmp, cbc and b12, folate labs are due Cholesterol screening 27 3911543 Z13.220 Fasting lipid panel is due Diabetes m ellitus screening 814603972 Z13.1 A1c screening is due Family his tory of coronary arteriosclerosis 340920077 Z82.49 Father had myocardial infarction in early 60's. Patient is interested in CT coronary calcium testing and exercise stress test clear. [id number] Luis Felipe Helton MD [facility] [address] [place] [address] 03/19/2025 12:06:26 03/19/2025 12:51:10 Overweight in adulthood with body mass index of 25 or more but less than 30 769297073 E66.3 Z68.25 6936171669 BMI is 25.9 Perioral dermatitis 2387 68729 L71.0 823 Start metronidaz ole 0.75% topical cream to apply twice daily on an as-needed basis for perioral dermatitis . If this does not resolve symptoms we discussed taking doxycyclin e course Face goes red 041798380 R23.2 3680802 Facial flushing consistent ly occurring with alcohol intake even if it is just 1 drink. We will check a full antibody panel including barley, wheat, rye, corn and potato. Rule out an acquired sensitivit y or allergy Hyperlipidemia 57365697 E78.5 2639833 History of hyperlipid emia start Zetia 10 mg daily and repeat fasting labs in June. Patient agrees to this treatment plan now Cobalamin deficiency 190 155072 E53.8 207187 Screening B12 and folate labs with history of B12 deficiency Hypothyroidism 90988723 E03.9 Patient is taking Synthroid 75 mcg daily and is due for thyroid function labs Long-term current use of drug therapy 412682933 Z79.899 48674488 Health Concerns Section Related Observation LastModified by Organization Detai ls LastModified Time None Recorded Concern Status LastModified by Organization Details LastModified Time None Recorded Advance Directives Directive Y: Payers Insurance Date Sequence Insurance Name Policy Number Policy La Covered Member ID La Member ID Guarantor Name 04/01/[address] [facility] [id number] Zari Finley [id number] Zari Finley Notes Date Note Type Note Provider Name and Address Organization Details Recorded Time 11/20/2023 text/html ThyroidReported by PatientPatient is taking Synthroid 75 mcg daily, adherent to daily regimen, due for updated thyroid function labs. Patient is here for annual wellness exam Had some bloody crusting in the left side of nose/nostrils for several months this year, and has since resolved after having had covid a few weeks ago. Of note, she had been using flonase nasal spray for some time leading up to the bloody crusting and irritation of the left nostril region. LOURDES Encarnacion Attn: Accounting,[address], [place], [address], [facility] 11/29/2023 22:05:52 10/03/2024 text/html ThyroidReported by PatientPatient is taking Synthroid 75 mcg daily, adherent to daily regimen, due for updated thyroid function labs. Patient is here for annual wellness exam LOURDES Encarnacion Attn: Accounting,[address], [place], [address], [facility] - [facility] 10/21/2024 09:12:09 03/19/2025 text/html Pt c/o of skin like [...] it happened again.Discuss meds.Pt hasn't seen an transmission inspector recently and pt has seen a derm recently for a mole. Patient also has hyperlipidemia and has not started any treatment yet but she would like to discuss the results and what the non statin options are.Also history of hypothyroidism on high-dose supplement. LOURDES Encarnacion Attn: Accounting,[address], [place], [address], [place] [facility] 03/31/2025 01:12:19 OBGyn Episode No OBEpisode recorded.
== END 2025-04-10 15:29 | disposition home or self-care (01) ==
LOC: ANHFOHIMG 15:29
PROVIDERS: PCP Physician Assistant; Visit Provider Obstetrics & Gynecology
DX: Z12.31 Encounter for screening mammogram for malignant neoplasm of breast (principal)
CPT/HCPCS: 77063; 77067